=== PATIENT | female | born 1965 | race Caucasian/White ===

== ENCOUNTER 2017-11-24 09:00 | Emergency (ER) | payer OTHER ==
[~2017-11-24] VITALS: Ht 165.1 cm; Wt 104.3 kg
[~2017-11-24 09:00] MED LIST: AMOXICILLIN500 M1 PO; AMOXICILLIN875 MG PO; AUGMENTIN 875875 MG PO; CHERACOL COUGH120 ML PO; LEVOTHYROXIN0.075 MG PO; NOHOMEMEDICATIONS; OMEPRAZOLE20 M1 PO; PROVENTIL IN; PROZAC 20 MG20 MG PO
[2017-11-24 09:05] VITALS: BP 180/90
[2017-11-24] MEDS ORDERED: FLEXERIL PO (09:24)
[2017-11-24] MEDS ORDERED: PREDNISONE 20 M20 M1 PO (09:24)
[2017-11-24] MEDS ORDERED: NORCO 5-325 TA1 EACH PO (09:24)
== END 2017-11-24 09:36 | disposition home or self-care (01) ==
LOC: M.ERS 09:00
DX: M54.41 Lumbago with sciatica, right side (principal); F32.9 Major depressive disorder, single episode, unspecified; E03.9 Hypothyroidism, unspecified; Z88.5 Allergy status to narcotic agent

== ENCOUNTER 2019-11-09 06:32 | Emergency (ER) | payer OTHER ==
[~2019-11-09] VITALS: Ht 165.1 cm; Wt 95.3 kg
[~2019-11-09 06:32] MED LIST changes: +FLEXERIL PO; +NORCO 5-325 TA1 EACH PO; +PREDNISONE 20 M20 M1 PO
[2019-11-09] MEDS ORDERED: FLUOXETINE (06:45)
[2019-11-09 07:05] LABS: ABSOLUTE BASOPHILS 0.1 thou/uL (0.0-0.2); ABSOLUTE EOSINOPHILS 0.2 thou/uL (0.0-0.7); ABSOLUTE LYMPHOCYTES 2.8 thou/uL (0.8-5.3); ABSOLUTE MONOCYTES 0.6 thou/uL (0.0-1.2); ABSOLUTE NEUTROPHILS 3.3 thou/uL (1.6-8.1); BASOPHILS 1.4 %; EOSINOPHILS 3.4 %; HEMATOCRIT 35.9 % (37.0-47.0); HEMOGLOBIN 12.5 gm/dL (12.0-15.0); LYMPHOCYTES 39.5 %; MCH 29.7 pg (26.0-34.0); MCHC 34.9 g/dL (28.0-37.0); MONOCYTES 8.7 %; MPV 8.1 fl. (7.2-11.1); NUCLEATED RBCS 0 /100WBC; PLATELET COUNT* 327 thou/uL (150-400); RBC 4.22 mil/uL (4.20-5.00); RDW-CV 14.8 % (10.5-14.5); WBC 7.1 thou/uL (4.0-11.0)
[2019-11-09 07:15] LABS: CALCIUM 8.4 mg/dL (8.5-10.1); CREATININE 0.9 mg/dL (0.6-1.3); POTASSIUM 3.9 mmol/L (3.5-5.1)
[2019-11-09 07:18] LABS: APTT 26.3 Seconds (25.0-31.3); PROTIME 10.4 Seconds (9.20-11.50)
[2019-11-09 07:28] LABS: ALBUMIN 3.7 g/dL (3.4-5.0); CK-MB MASS 1.9 ng/mL (<0.5-3.6); MAGNESIUM 1.8 mg/dL (1.8-2.4); TOTAL BILIRUBIN 0.4 mg/dL (<0.1-1.0); TOTAL PROTEIN 7.3 g/dL (6.4-8.2)
[2019-11-09] MEDS ORDERED: EPIPEN 2-P0.3 MG/0.3 IM (07:30)
[2019-11-09] MEDS ORDERED: PEPCID20 MG PO (07:30)
[2019-11-09] MEDS ORDERED: PREDNISONE 20 M20 M1 PO (07:30)
[2019-11-09 10:56] VITALS: BP 132/67
--- NOTE | 2019-11-09 17:06 | EKG ---
[place] [address] ELECTROCARDIOGRAM REPORT Name: JOSIE ROMO Kimberly Room: [facility]#: [id number] Admission: 11/09/19 Attend Phys: Discharge: 11/09/19 Date of : 61 Report #: [id number] THIS REPORT FOR: //name// [facility] ED Test Date: 2019-11-09 Test Time: 06:37:09 Pat Name: JOSIE ROMO Department: Room: Gender: F Bookkeeping Machine Operator: SILVIA : 1965 Requested By: Jaren Sutton Order Number: [id number] MD: Zane Candelario Measurements Intervals [place] Rate: 68 P: 51 CO: 153 QRS: -33 QRSD: 101 T: 4 QT: 428 QTc: 456 Interpretive Statements Sinus rhythm Abnormal R-wave progression, late transition Left ventricular hypertrophy Compared to ECG 03/13/2017 19:23:41 T-wave abnormality no longer present Electronically Signed On 11-09-2019 17:05:47 [employer] by Zane Candelario [email or web address] <ELECTRONICALLY SIGNED> By: Zane Candelario MD, [facility] 11/09/19 1705 0637 0637 Zane Candelario MD, FAC /EPI
== END 2019-11-09 10:56 | disposition home or self-care (01) ==
LOC: M.ERS 06:32
PROVIDERS: Family Medicine
DX: R07.89 Other chest pain (principal); F41.9 Anxiety disorder, unspecified; F32.9 Major depressive disorder, single episode, unspecified; E03.9 Hypothyroidism, unspecified; Z98.890 Other specified postprocedural states; Z88.5 Allergy status to narcotic agent

== ENCOUNTER 2021-06-04 16:45 | Emergency (ER) | payer OTHER ==
[~2021-06-04] VITALS: Ht 167.6 cm; Wt 74.8 kg
[~2021-06-04 16:45] MED LIST changes: +EPIPEN 2-P0.3 MG/0.3 IM; +FLUOXETINE; +PEPCID20 MG PO
[2021-06-04 17:09] VITALS: BP 151/98
== END 2021-06-04 17:10 | disposition home or self-care (01) ==
LOC: M.ERS 16:45
DX: U07.1 COVID-19 (principal); E03.9 Hypothyroidism, unspecified; Z98.890 Other specified postprocedural states; Z88.5 Allergy status to narcotic agent